=== PATIENT | female | born 1945 | race Asian ===

== ENCOUNTER 2022-01-12 11:02 | Outpatient (CLI) | payer SELFPAY ==
[2022-01-12 11:33] LABS: ALBUMIN 4.2 g/dL (3.2-5.5); ALBUMIN/GLOBULIN RATIO 1.3 (1.0-2.2); ALKALINE PHOSPHATASE 49 IU/L (42-121); ALT ALANINE AMINOTRANSFERASE 33 IU/L (10-60); AST ASPARTATE AMINOTRANSFERASE 26 IU/L (10-42); BILIRUBIN,TOTAL 0.6 mg/dL (0.2-1.0); BUN - BLOOD UREA NITROGEN 18 mg/dL (6-20); CALCIUM 8.9 mg/dL (8.5-10.3); CARBON DIOXIDE - CO2 28 mmol/L (21-32); CHLORIDE 105 mmol/L (101-111); CHOLESTEROL 119 mg/dL; CREATININE 0.5 mg/dL (0.4-1.0); GFR - MDRD 119 (>89); GLUCOSE 106 mg/dL (70-100); HDL CHOLESTEROL 61 mg/dL; LDL CHOLESTEROL,CALCULATED 48 mg/dL; LDL/HDL RATIO 0.8 (<4.4); POTASSIUM 3.9 mmol/L (3.5-5.0); SODIUM 142 mmol/L (135-145); TOTAL PROTEIN 7.5 g/dL (6.7-8.2); TRIGLYCERIDES 49 mg/dL; VLDL CHOLESTEROL 10 mg/dL
[2022-01-12 11:53] LABS: ESTIMATED AVERAGE GLUCOSE 126 mg/dL (70-100)
== END 2022-01-12 11:03 | disposition home or self-care (01) ==
LOC: LAB 11:02
DX: E78.5 Hyperlipidemia, unspecified (principal); R73.03 Prediabetes
CPT/HCPCS: 36415; 80053; 80061; 83036; 83721

== ENCOUNTER 2022-03-16 21:07 | Emergency (ER) | payer SELFPAY ==
[2022-03-16 21:20] VITALS: BP 126/84
[2022-03-16] MEDS ORDERED: cephALEXin 250 MG CAPSULE PO STA (21:31)
--- NOTE | 2022-03-16 21:33 | ED Physician Documentation ---
PD HPI SKIN - Stated complaint Stated Complaint: SWOLLEN FEET, DIZZY - Chief complaint Chief Complaint: Wound - History obtained from History obtained from: Patient, Family - Additional information Additional information: 76-year-old woman presents with her daughter for the evaluation of a nonhealing wound to the left lower extremity that been going on for about 2 months. There is no recollected trauma. It is painful, especially at night. She denies fevers with it but has had some chills. She was seen at the walk-in clinic and prescribed Bactrim which was not helpful. I do not see record of culture. Review of Systems Constitutional: reports: Reviewed and negative Eyes: reports: Reviewed and negative Respiratory: reports: Reviewed and negative PD PAST MEDICAL HISTORY - Present Medications Home Medications: Ambulatory Orders Medication Instructions Recorded Confirmed Aspirin Chewable [[place] Yariel 81 mg PO DAILY 03/16/22 03/16/22 Aspirin] cephALEXin [Keflex] 500 mg PO Q6H #28 cap 03/16/22 - Allergies Allergies/Adverse Reactions: Allergies Allergy/AdvReac Type Severity Reaction Status Date / Time No Known Drug Allergies Allergy Verified 03/16/22 21:20 PD ED PE NORMAL - Vitals Vital signs reviewed: Yes - General General: Alert and oriented X 3, No acute distress - Extremities Extremities: Other (There is a ulcerated lesion that is shallow measuring approximately 3 x 2 cm to the anteromedial lower leg. It was debrided at bedside with a cotton swab and then cultured. No cellulitis.) - Neuro Neuro: Alert and oriented X 3, Normal speech Results - Vitals Vitals: Vital Signs - 24 hr 03/16/22 21:15 Temperature 36.5 C Heart Rate 70 Respiratory 14 Rate Blood Pressure 126/84 H O2 Saturation 99 Oxygen O2 Source Room air PD MEDICAL DECISION MAKING - ED course ED course: 76-year-old woman has a nonhealing wound of the left lower extremity. Discussed need to follow-up with dermatology for consideration for biopsy as the diagnosis is unclear but doubt an emergency medical condition. We will trial Keflex in the interim pending a culture. Departure - Departure Disposition: 01 Home, Self Care Clinical Impression: Skin lesion Condition: Good Record reviewed to determine appropriate education?: Yes Instructions: ED Staph Infec Abx Tx Only Prescriptions: cephALEXin [Keflex] 500 mg PO Q6H #28 cap Comments: The cause of the skin lesion is unclear but I strongly recommend follow-up with a refrigerator cabinetmaker for consideration for evaluation and potential biopsy. There is one here in [place],: Sofya Green [address] [facility] [phone] Call tomorrow for an appointment. Wound care: you can apply bacitracin ointment which is available [id number], soap and water briefly once a day and then pat dry, then apply the ointment with a nonstick dressing and a loose wrap. Return if worse. We are performing a wound culture, the results should be done in 48-72 hours. If antibiotic change is necessary we will call you. Return if worse in the meantime, especially if you develop increased pain, fevers, cannot keep down the medication. Otherwise follow-up with your physician in approximately 2-3 days.
[2022-03-16] MEDS ORDERED: BACITRACIN ZINC OINT 1 PACKET TOP STA (21:34)
== END 2022-03-16 22:05 | disposition home or self-care (01) ==
LOC: ED 21:07
DX: L97.829 Non-pressure chronic ulcer of other part of left lower leg with unspecified severity (principal)
CPT/HCPCS: 87070; 87205; 99283; A9270

== ENCOUNTER 2022-04-11 16:45 | Emergency (ER) | payer MEDICAID ==
[2022-04-11 17:03] VITALS: BP 126/92
[2022-04-11] MEDS ORDERED: predniSONE 20 MG TABLET PO STA (21:33)
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
== END 2022-04-11 22:22 | disposition home or self-care (01) ==
LOC: ED 16:45
DX: T20.46XA Corrosion of unspecified degree of forehead and cheek, initial encounter (principal); T49.0X5A Adverse effect of local antifungal, anti-infective and anti-inflammatory drugs, initial encounter
CPT/HCPCS: 99282; 99284; J7512

== ENCOUNTER 2022-08-03 15:18 | Outpatient (CLI) | payer OTHER ==
--- NOTE | 2022-08-03 17:25 | Ultrasound Report ---
PROCEDURE: Head or Neck Soft Tissue INDICATIONS: PAROTID LUMP, PAROTIS TECHNIQUE: Real-time scanning was performed of the thyroid gland, with image documentation. COMPARISON: None FINDINGS: Multiple grayscale and color Doppler images of the right parotid region demonstrates no evidence for abnormal mass lesions or adenopathy. No abnormalities identified in the parotid gland. IMPRESSION: Unremarkable sonographic appearance of the right parotid gland. Reviewed by: Kuldip Forrest MD on 08/03/2022 5:24 PM PDT Approved by: Kuldip Forrest MD on 08/03/2022 5:24 PM PDT Station ID: [id number]
== END 2022-08-03 15:19 | disposition home or self-care (01) ==
LOC: DI 15:18
PROVIDERS: ATTEND Internal Medicine
DX: R22.1 Localized swelling, mass and lump, neck (principal); K11.20 Sialoadenitis, unspecified

== ENCOUNTER 2023-06-20 10:12 | Outpatient (CLI) | payer MEDICAID ==
--- NOTE | 2023-06-21 07:37 | Mammography Report ---
BILATERAL FIRST EVER DIGITAL SCREENING MAMMOGRAM 3D/2D WITH EXAGGERATED CC: 06/20/2023 CLINICAL: Routine screening. Baseline exam. No prior exams were available for comparison. There are scattered areas of fibroglandular density in both breasts (category b / 25%-50% glandular t issue). There are benign vascular calcifications in both breasts. No significant masses, calcifications, or other findings are seen in either breast. IMPRESSION: BENIGN There is no mammographic evidence of malignancy. A 1 year screening mammogram is recommended. Based on the Tyrer Cuzick model (a risk assessment model) the patient's lifetime risk is 1.6% and her 10 year risk is 0.0%. According to the ACR, ACS, and NCCN guidelines, an annual breast MRI exam gabino g with mammogram is recommended if the patient's lifetime risk is 20% or greater. This exam was interpreted at Station ID: [id number]. NOTE: For mammograms, a report in lay terms will be sent to the patient. Approximately 15% of breast malignancies will not be visualized mammographically. In the management of a palpable breast mass, a negative mammogram must not discourage biopsy of a clinically suspicious lesion. Electronically Signed By: Jayy estes/david:06/20/2023 12:58:59 letter sent: No_Letter ACR BI-RADS Category 2: Benign Finding(s) 3342F PARENCHYMAL PATTERN: (A) - The breast(s) demonstrate(s) scattered fibroglandular densities. BI-RADS CATEGORY: (2) - 2 RECOMMENDATION: (ANNUAL) - Recommend routine annual screening mammography. [id number] 1 year screening LATERALITY: (B)
== END 2023-06-20 10:13 | disposition home or self-care (01) ==
LOC: DI 10:12
PROVIDERS: ATTEND Internal Medicine
DX: Z12.31 Encounter for screening mammogram for malignant neoplasm of breast (principal); R92.323 Mammographic fibroglandular density, bilateral breasts; R92.1 Mammographic calcification found on diagnostic imaging of breast

== ENCOUNTER 2023-07-25 11:54 | Outpatient (CLI) | payer MEDICAID | END 2023-07-25 11:55 | disposition home or self-care (01) | LOC: DI 11:54 | PROVIDERS: ATTEND Internal Medicine | DX: I35.0 Nonrheumatic aortic (valve) stenosis (principal) | CPT/HCPCS: 93307 ==